=== PATIENT | male | born 1970 | race African-American/Black ===

== ENCOUNTER 2018-10-13 21:44 | Emergency (ER) | payer MEDICAID, OTHER ==
[~2018-10-13] VITALS: Ht 193 cm; Wt 90.7 kg
--- NOTE | 2018-10-13 21:52 | NUR ---
CALLED PT TO BE TRIAGED. PT NOT PRESENT IN WAITING ROOM
[2018-10-13 22:10] VITALS: BP 150/111
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
[2018-10-13] MEDS ORDERED: IBUPROFEN600 MG ORAL (22:16)
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
[2018-10-13 22:35] VITALS: BP 150/111
--- NOTE | 2018-10-13 22:35 | NUR ---
ER Nurse Note: Pt seen, treated, medically cleared for discharge by ERMD. Discharge instuctions and prescriptions given with repeat verbalization by pt. Emphasized to follow up with primay care provider; take whole course of medication. Explained each medication. All orders completed per ERMD orders. Pt a&ox4, VSS, no signs of distress. ID band removed. All questions answered per pt's questions. Pt left with all belongings, left with own transportation.
--- NOTE | 2018-10-14 12:43 | Diagnostic Imaging Report ---
Indication: Left wrist pain Findings: 3 views of the left wrist were obtained. No acute fractures, malalignment, erosions or periostitis are identified. Dorsal and lateral soft tissue swelling noted.. Impression: No acute findings. Soft tissue swelling
== END 2018-10-13 22:35 | disposition home or self-care (01) ==
LOC: EMR 22:12
DX: S63.502A Unspecified sprain of left wrist, initial encounter (principal); M54.5 Low back pain; Y04.8XXA Assault by other bodily force, initial encounter; Y92.59 Other trade areas as the place of occurrence of the external cause
CPT/HCPCS: 29125; 99283

== ENCOUNTER 2018-10-22 16:24 | Emergency (ER) | payer MEDICAID ==
[~2018-10-22] VITALS: Ht 193 cm; Wt 90.7 kg
[~2018-10-22 16:24] MED LIST: IBUPROFEN600 MG ORAL
--- NOTE | 2018-10-22 16:27 | NUR ---
ED Nurse Note: pt not found in waiting area.
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
[2018-10-22] MEDS ORDERED: NKM (16:42)
--- NOTE | 2018-10-22 17:04 | NUR ---
ED Nurse Note: ERMD and ERPA at bedside.
--- NOTE | 2018-10-22 17:24 | NUR ---
ED Nurse Note: wound care and splint applied at bedside.
[2018-10-22 17:35] VITALS: BP 126/74
--- NOTE | 2018-10-22 17:36 | NUR ---
ED Nurse Note: Pt cleared by health care Provider for discharge. DC instructions/prescription was given and explained to pt and verbalized understanding of teachings. All medical deviecs such as ID band removed. Pt is AAO x4, ambulatory with crutches and left with all personal belongings.
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
== END 2018-10-22 17:37 | disposition home or self-care (01) ==
LOC: EMR 16:52
DX: S81.802D Unspecified open wound, left lower leg, subsequent encounter (principal); S89.92XD Unspecified injury of left lower leg, subsequent encounter; Z48.00 Encounter for change or removal of nonsurgical wound dressing; W34.00XD Accidental discharge from unspecified firearms or gun, subsequent encounter
CPT/HCPCS: 29515; 99283

== ENCOUNTER 2018-11-10 22:05 | Emergency (ER) | payer MEDICAID ==
[~2018-11-10] VITALS: Ht 193 cm; Wt 90.7 kg
[~2018-11-10 22:05] MED LIST changes: +NKM
[2018-11-10 22:20] VITALS: BP 128/87
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
--- NOTE | 2018-11-10 23:16 | NUR ---
ED Nurse Note: x ray at bedside
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
[2018-11-10] MEDS ORDERED: NAPROXEN250 MG ORAL (23:39)
[2018-11-11] VITALS: BP 130/84
--- NOTE | 2018-11-11 | NUR ---
ER DISCHARGE NOTE: Patient is cleared to be discharged per ERMD, pt is aox4, on room air, with stable vital signs. a new splint was applied. pt was given dc and prescription instructions, pt was able to verbalize understanding, pt id band removed without complications. pt is able to ambulate with crutches. pt took all belongings.
--- NOTE | 2018-11-11 17:22 | Diagnostic Imaging Report ---
Indication: Right foot pain Technique: 3 views right foot Comparison: none Findings: No acute fractures. No dislocations. Joint spaces are preserved. There is mild hammertoe deformity of the first through fifth digits. There is a comminuted fracture of the distal tibia noted Impression: Negative for acute foot fracture Positive for distal tibial fracture-see separate tibia-fibula radiograph report
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
== END 2018-11-11 | disposition home or self-care (01) ==
LOC: EMR 22:41
DX: S82.301D Unspecified fracture of lower end of right tibia, subsequent encounter for closed fracture with routine healing (principal); S89.81XD Other specified injuries of right lower leg, subsequent encounter; W34.00XD Accidental discharge from unspecified firearms or gun, subsequent encounter
CPT/HCPCS: 29515; 73590; 73630; Z7502; 99284

== ENCOUNTER 2018-11-25 03:56 | Emergency (ER) | payer MEDICAID ==
[~2018-11-25] VITALS: Ht 193 cm; Wt 90.7 kg
[~2018-11-25 03:56] MED LIST changes: +NAPROXEN250 MG ORAL
--- NOTE | 2018-11-25 04:06 | NUR ---
ED Nurse Note: Pt ambulated to ED from home requesting a wound check and rebandaging on R ankle. Pt denies pain at this time. Foot looks extremely dry and slightly swollen, denies numbness. unable to assess cap refil due to pt's toenails being thick and discolored
[2018-11-25 04:09] VITALS: BP 146/86
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
[2018-11-25 04:40] VITALS: BP 146/86
--- NOTE | 2018-11-25 04:40 | NUR ---
ER DISCHARGE NOTE: Patient is cleared to be discharged per ERMD, pt is aox4, on room air, with stable vital signs. pt was given dc and prescription instructions, pt was able to verbalize understanding, pt id removed. pt is able to ambulate with steady gait. pt took all belongings. New short cast applied, pt tolerated well
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
== END 2018-11-25 04:40 | disposition home or self-care (01) ==
LOC: EMR 04:09
DX: S82.254A Nondisplaced comminuted fracture of shaft of right tibia, initial encounter for closed fracture (principal); W34.00XA Accidental discharge from unspecified firearms or gun, initial encounter; Y92.9 Unspecified place or not applicable
CPT/HCPCS: 29515; 73610; Z7502; 99283